=== PATIENT | male | born 1990 | race Caucasian/White ===

== ENCOUNTER 2018-08-08 17:58 | Emergency (ER) | payer SELFPAY ==
[2018-08-08 18:03] VITALS: Wt 93.2 kg
[2018-08-08] MEDS ORDERED: HYDROCODON-ACE1 EAC2 PO (19:58)
[2018-08-08 20:32] VITALS: BP 116/61
== END 2018-08-08 20:33 | disposition home or self-care (01) ==
LOC: D.ER 17:58
DX: S82.851A Displaced trimalleolar fracture of right lower leg, initial encounter for closed fracture (principal); Y93.72 Activity, wrestling; Y92.89 Other specified places as the place of occurrence of the external cause